=== PATIENT | male | born 1985 ===

== ENCOUNTER 2017-07-18 13:50 | Observation (INO) ==
[2017-07-18] MEDS ORDERED: ONDANSETRON 4 MG/2 ML VIAL IV PRN (15:04)
[2017-07-18] MEDS ORDERED: ACETAMINOPHEN 325 MG TABLET PO PRN (15:04)
[2017-07-18] MEDS ORDERED: PIPERACILLIN/TAZOBACTAM 3,375 MG VIAL IV ONE (19:10)
[2017-07-18] MEDS: PIPERACILLIN/TAZOBACTAM 3,375 MG in SODIUM CHLORIDE 0.9% 100 ML IV SCH (19:24)
[2017-07-18] MEDS: DEXTROSE 5% LACTATED RINGERS 1,000 ML IV SCH ×2 (22:42→23:41)
[2017-07-18] MEDS: MORPHINE 2 MG/1 ML SYRINGE IV PRN (22:42)
[2017-07-19] MEDS: MORPHINE 2 MG/1 ML SYRINGE IV PRN ×3 (03:04→18:07)
[2017-07-19] MEDS: PIPERACILLIN/TAZOBACTAM 3,375 MG in SODIUM CHLORIDE 0.9% 100 ML IV SCH ×3 (03:50→20:52)
[2017-07-19] MEDS: DEXTROSE 5% LACTATED RINGERS 1,000 ML IV SCH ×2 (07:45→18:17)
[2017-07-19] MEDS: PANTOPRAZOLE 40 MG TABLET PO SCH (11:18)
[2017-07-19] MEDS ORDERED: BUPIVACAINE 0.25% 50 ML VIAL ONE (13:13)
[2017-07-19] MEDS ORDERED: SEVOFLURANE 1 UNIT/15 MINUTE INH ONE (14:42)
[2017-07-19] MEDS ORDERED: fentaNYL 100 MCG/2 ML VIAL ONE (14:43)
[2017-07-19] MEDS ORDERED: MIDAZOLAM 2 MG/2 ML VIAL ONE (14:43)
[2017-07-19] MEDS ORDERED: SUCCINYLCHOLINE 200 MG/10 ML VIAL ONE (14:44)
[2017-07-19] MEDS ORDERED: ONDANSETRON 4 MG/2 ML VIAL ONE ×2 (14:44→15:09)
[2017-07-19] MEDS ORDERED: NEOSTIGMINE 10 MG/10 ML VIAL ONE (14:44)
[2017-07-19] MEDS ORDERED: KETOROLAC 30 MG/1 ML VIAL ONE (14:44)
[2017-07-19] MEDS ORDERED: PROPOFOL 500 MG/50 ML BOTTLE IV ONE (14:44)
[2017-07-19] MEDS ORDERED: ACETAMINOPHEN 1,000 MG/100 ML VIAL IV ONE (14:44)
[2017-07-19] MEDS ORDERED: ROCURONIUM 100 MG/10 ML VIAL IV ONE (14:44)
[2017-07-19] MEDS ORDERED: ONDANSETRON 4 MG/2 ML VIAL IV PRN (15:07)
[2017-07-19] MEDS ORDERED: HYDROmorphone 2 MG/1 ML VIAL IV PRN (15:07)
[2017-07-19] MEDS ORDERED: HYDROmorphone 2 MG/1 ML VIAL ONE (15:09)
[2017-07-20] MEDS: DEXTROSE 5% LACTATED RINGERS 1,000 ML IV SCH ×2 (01:05→07:00)
[2017-07-20] MEDS: PIPERACILLIN/TAZOBACTAM 3,375 MG in SODIUM CHLORIDE 0.9% 100 ML IV SCH (03:12)
[2017-07-20] MEDS: MORPHINE 2 MG/1 ML SYRINGE IV PRN ×2 (03:16→08:20)
[2017-07-20 06:52] VITALS: BP 132/70
[2017-07-20 07:55] LABS: Hematocrit 44.6 VOL% (42.0-52.0); Hemoglobin 15.7 GM/DL (14.0-18.0)
[2017-07-20] MEDS: PANTOPRAZOLE 40 MG TABLET PO SCH (08:20)
== END 2017-07-20 11:20 | disposition home or self-care (01) ==
LOC: N.ED 13:50 → N.EDINP 13:50 → N.3E 20:15
PROVIDERS: ADMIT Surgery; ATTEND Surgery
PROC: LAPCHOL (2017-07-19 09:05)